=== PATIENT | female | born 1950 | race Caucasian/White ===

== ENCOUNTER 2016-04-02 10:03 | Outpatient (CLI) ==
[2015-12-21 12:19] VITALS: BMI 32.5
[2016-04-02 10:49] LABS: ALBUMIN 3.3 g/dL (3.4-5.0); ANION GAP 13.2; BILIRUBIN,TOTAL 0.3 mg/dL (0.00-1.20); BUN/CREATININE RATIO 25.33; CALCIUM 8.9 mg/dL (8.2-10.2); CREATININE 0.75 mg/dL (0.60-1.30); POTASSIUM 4.2 mmol/L (3.5-5.10); TOTAL PROTEIN 6.6 g/dL (5.8-8.1)
== END 2016-04-02 10:04 | disposition home or self-care (01) ==
LOC: LAB 10:03
PROVIDERS: ATTEND Emergency Medicine
DX: E11.9 Type 2 diabetes mellitus without complications (principal)
CPT/HCPCS: 36415; 80053; 83036

== ENCOUNTER 2016-04-04 09:35 | Outpatient (CLI) ==
[2015-12-21 12:19] VITALS: BMI 32.5
--- NOTE | 2016-04-04 11:08 | CT ---
EXAM: CT Abdomen without contrast. CT Pelvis without contrast. HISTORY: Right upper quadrant pain. Diarrhea. COMPARISON: None available. TECHNIQUE: Multiple axial images of the abdomen and pelvis were obtained without intravenous contra st. Images were reformatted in the coronal plane. FINDINGS: Please note that evaluation of the abdominal and pelvic structures is limited due to lack of intravenous contrast. The lung bases are clear. Degenerative changes present in the spine. Gallbladder is absent. The liver contains a 1.1 cm fluid density lesion in the left lobe on axial i mage 14. The pancreas, spleen, and right adrenal gland demonstrate normal contour. A 1.2 cm fluid density left adrenal nodule noted on axial image 23. There is a fluid density left renal cortical l esion measuring 6.9 x 6.5 cm in the lower pole on axial image 36 which extends 6.9 cm in cranial cau fidencio length on coronal image 57. Exophytic lobular fluid density lesion off the right upper pole cor zachary measures approximately 3.2 x 2.9 x 3.4 cm on axial image 27 and coronal image 55. No calcified renal stones or hydronephrosis detected. The bowel is normal in course and caliber without evidence for obstruction or inflammatory process. The appendix is not identified. Urinary bladder is unremarkable. Uterus is absent. Atherosclerot ic calcifications noted. There is a small fat-containing umbilical hernia. No free fluid or free a ir noted. IMPRESSION: 1. Hepatic and bilateral renal cystic lesions. Consider correlation with ultrasound to assess for any internal complexity. 2. Benign left adrenal adenoma.
== END 2016-04-04 09:36 | disposition home or self-care (01) ==
LOC: RAD 09:35
PROVIDERS: ATTEND Emergency Medicine
DX: R10.11 Right upper quadrant pain (principal)

== ENCOUNTER 2016-04-10 08:11 | Outpatient (CLI) ==
[2015-12-21 12:19] VITALS: BMI 32.5
[2016-04-10 09:21] LABS: AMYLASE 37 U/L (25-115); LIPASE 38 U/L (8-78)
--- NOTE | 2016-04-10 09:43 | US ---
EXAM: ULTRASOUND ABDOMEN LIMITED HISTORY: Hepatic and renal cystic lesions. FINDINGS: Ultrasound abdomen, limited. Liver size was measured at 18 cm, upper limit normal. The liver demonstrated a tiny 1 cm anechoic mass of the right hepatic lobe. No intrahepatic biliary dil atation. The portal vein is patent and hepatopedal. Gallbladder has been removed. Common bile duct diameter normal at 0.38 cm. Visualized pancreas wit hin normal limits. The right kidney had a 2.5 cm anechoic lesion of the superior aspect. Left kidn ey was not imaged. IMPRESSION: 1. Tiny simple 1 cm right hepatic lobe cyst. 2. The superior right kidney has a simple 2.5 cm cortical cyst. ]
== END 2016-04-10 08:12 | disposition home or self-care (01) ==
LOC: RAD 08:11
PROVIDERS: ATTEND Nurse Practitioner Family
DX: K76.89 Other specified diseases of liver (principal); N28.1 Cyst of kidney, acquired; E11.65 Type 2 diabetes mellitus with hyperglycemia; I10 Essential (primary) hypertension
CPT/HCPCS: 36415; 80074; 82150; 83690

== ENCOUNTER 2016-04-17 08:27 | Outpatient (CLI) ==
[2015-12-21 12:19] VITALS: BMI 32.5
--- NOTE | 2016-04-17 09:16 | US ---
Examination: Abdalla-scale and color Doppler real-time imaging of the kidneys and urinary bladder. Reason for study: Cyst of kidney. Comparison: CT examination of the abdomen pelvis performed 04/04/2016. FINDINGS: The right kidney measures approximately 10.95 x 5.22 x 5.71 cm with normal appearing echotexture, no hydronephrosis, and no nephrolithiasis. In the superior pole of the right kidney there is a 2.89 x 2.42 x 2.25 cm renal cyst without interva l vascularity. The left kidney measures approximately 10.54 x 5.95 x 5.54 cm with normal appearing echotexture, no hydronephrosis, and no nephrolithiasis. In the inferior pole of the left kidney. There is a septated renal cyst measuring approximately 8.9 2 x 5.92 x 5.81 cm without interval vascularity. The bladder is not completely evaluated as is almost completely empty of urine. Impression: Bilateral renal cysts the largest is seen in the left kidney with small internal septations and no i nterval vascularity.
== END 2016-04-17 08:28 | disposition home or self-care (01) ==
LOC: RAD 08:27
PROVIDERS: ATTEND Nurse Practitioner Family
DX: N28.1 Cyst of kidney, acquired (principal)
CPT/HCPCS: 76770

== ENCOUNTER 2016-06-11 07:48 | Day surgery (SDC) ==
[2015-12-21 12:19] VITALS: BMI 32.5
[2016-06-11] MEDS ORDERED: LIDOCAINE 1% 20 ML MDV ONE (08:21)
[2016-06-11] MEDS ORDERED: LIDOCAINE 1% 20 ML MDV ID ONE (08:21)
[2016-06-11] MEDS ORDERED: SUBLIMAZE ONE (09:38)
[2016-06-11] MEDS ORDERED: VERSED ONE (09:38)
[2016-06-11] MEDS ORDERED: DIPRIVAN 20 ML VIAL IVP ONE (09:38)
[2016-06-11 11:50] VITALS: BP 108/70; TEMP 97.5
--- NOTE | 2016-06-11 13:58 | OP ---
PROCEDURE: COLONOSCOPY TO CECUM WITH SNARE POLYPECTOMY. ENDOSCOPIST: Apolinar BYRNES M.D. INDICATION: Diarrhea INSTRUMENT: PCFH-190. MEDICATION: PER ANESTHESIA. PROCEDURE: The patient was positioned for colonoscopy. The digital rectal exam was negative. The colonoscope was inserted through the anus and advanced to the cecum. The cecum was identified using the ileocecal valve and the appendiceal orifice as landmarks. The scope was slowly withdrawn through an adequately prepped colon. The patient had diarrhea but had return Giardia positive and has been treated. Her diarrhea had resolved. We found a small polyp in the ascending colon, 60 centimeters, 50 cm and 30cm, these were all in the 5mm size range. These were removed using snare cautery and submitted in separate containers. The retroflex exam was otherwise negative. Withdraw time 10 minutes and 24 seconds. PLAN: 1. Repeat colonoscopy in three years. 2. She can resume her Plavix in five days 3. See her as needed CC: [facility], Dr. Belkis COREA
== END 2016-06-11 11:00 | disposition home or self-care (01) ==
LOC: SURG 07:48
PROVIDERS: ATTEND Internal Medicine Gastroenterology
DX: R19.7 Diarrhea, unspecified (principal); D12.2 Benign neoplasm of ascending colon; D12.4 Benign neoplasm of descending colon; D12.5 Benign neoplasm of sigmoid colon; E11.9 Type 2 diabetes mellitus without complications
CPT/HCPCS: 82962

== ENCOUNTER 2016-06-26 08:40 | Outpatient (CLI) ==
[2015-12-21 12:19] VITALS: BMI 32.5
[2016-06-26 08:49] LABS: BASOPHILS # (AUTO) 0.1 K/uL (0-0.2); BASOPHILS % (AUTO) 0.6 % (0.0-3.0); EOSINOPHILS # (AUTO) 0.2 K/ul (0.0-0.7); HEMATOCRIT 38.4 % (37.0-47.0); HEMOGLOBIN 12.8 g/dl (12.0-16.0); IMMATURE GRANULOCYTE % (AUTO) 0.5 % (0.0-5.0); LYMPHOCYTES # (AUTO) 1.6 K/uL (0.60-3.4); LYMPHOCYTES % (AUTO) 15.1 (10.0-50.0); MEAN CORPUSCULAR HEMOGLOBIN 27.8 pg (27.0-31.0); MEAN CORPUSCULAR HGB CONC 33.3 (31.8-35.4); MEAN CORPUSCULAR VOLUME 83.3 fl (81.0-99.0); MONOCYTES # (AUTO) 0.6 K/uL (0.4-2.0); MONOCYTES % (AUTO) 5.2 (0-10); NEUTROPHILS # (AUTO) 8.2 K/ul (2.0-6.9); NEUTROPHILS % (AUTO) 76.6; PLATELET COUNT 483 10^3/uL (140-440); RED BLOOD COUNT 4.61 10^6/ul (4.20-5.40); WHITE BLOOD COUNT 10.66 K/ul (4.6-10.2)
[2016-06-26 09:26] LABS: ALBUMIN 3.2 g/dL (3.4-5.0); ALBUMIN/GLOBULIN RATIO 0.76; ANION GAP 13.1; BILIRUBIN,TOTAL 0.32 mg/dL (0.00-1.20); CALCIUM 9.2 mg/dL (8.2-10.2); CREATININE 0.83 mg/dL (0.60-1.30); POTASSIUM 4.1 mmol/L (3.5-5.10); TOTAL PROTEIN 7.4 g/dL (5.8-8.1)
[2016-06-26 09:27] LABS: BUN/CREATININE RATIO 30.12; CHOL/HDL RATIO 3.5 (4.5-5.5)
== END 2016-06-26 08:41 | disposition home or self-care (01) ==
LOC: LAB 08:40
PROVIDERS: ATTEND Emergency Medicine
DX: E11.65 Type 2 diabetes mellitus with hyperglycemia (principal); I10 Essential (primary) hypertension; E78.5 Hyperlipidemia, unspecified; I25.10 Atherosclerotic heart disease of native coronary artery without angina pectoris
CPT/HCPCS: 36415; 80053; 80061; 83036; 84443; 85025

== ENCOUNTER 2016-07-04 09:36 | Outpatient (CLI) ==
[2015-12-21 12:19] VITALS: BMI 32.5
--- NOTE | 2016-07-04 10:28 | MAMMO ---
EXAM: Digital screening mammogram HISTORY: Screening mammogram COMPARISON: Mammogram 06/14/2015 and 11/27/2013 FINDINGS: Bilateral CC and MLO views of the breasts were performed digitally and demonstrate scatte red fibroglandular breast density (25 - 50%). Vascular calcifications are present and unchanged. Th ere is no abnormal nodule or calcification. There is no significant interval change. IMPRESSION: No new or suspicious calcification or nodule RECOMMENDATION: Annual screening mammogram BIRADS category II: Benign findings
== END 2016-07-04 09:37 | disposition home or self-care (01) ==
LOC: RAD 09:36
PROVIDERS: ATTEND Emergency Medicine
DX: Z12.31 Encounter for screening mammogram for malignant neoplasm of breast (principal)

== ENCOUNTER 2016-07-31 14:04 | Outpatient (CLI) ==
[2016-07-31 14:30] VITALS: BMI 33.3
== END 2016-07-31 14:11 ==
LOC: AMBL 14:04
PROVIDERS: ATTEND Internal Medicine
DX: R11.2 Nausea with vomiting, unspecified (principal); R25.2 Cramp and spasm; M79.605 Pain in left leg; M79.604 Pain in right leg; R73.9 Hyperglycemia, unspecified

== ENCOUNTER 2016-07-31 14:14 | Emergency (ER) | payer OTHER ==
[2016-07-31 14:30] VITALS: BP 150/80; TEMP 97.1; BMI 33.3
[2016-07-31] MEDS ORDERED: ZOFRAN 4 MG/2 ML IVP STA (14:30)
[2016-07-31] MEDS ORDERED: MORPHINE 4 MG/ML SYRINGE IVP STA (14:30)
[2016-07-31 14:51] LABS: BASOPHILS # (AUTO) 0.1 K/uL (0-0.2); BASOPHILS % (AUTO) 0.4 % (0.0-3.0); EOSINOPHILS % (AUTO) 0.2 % (0.0-7.0); HEMATOCRIT 38.4 % (37.0-47.0); HEMOGLOBIN 13.4 g/dl (12.0-16.0); IMMATURE GRANULOCYTE % (AUTO) 0.4 % (0.0-5.0); LYMPHOCYTES # (AUTO) 1.4 K/uL (0.60-3.4); LYMPHOCYTES % (AUTO) 10.4 (10.0-50.0); MEAN CORPUSCULAR HEMOGLOBIN 28.1 pg (27.0-31.0); MEAN CORPUSCULAR HGB CONC 34.9 (31.8-35.4); MEAN CORPUSCULAR VOLUME 80.5 fl (81.0-99.0); MONOCYTES # (AUTO) 0.5 K/uL (0.4-2.0); MONOCYTES % (AUTO) 3.4 (0-10); NEUTROPHILS # (AUTO) 11.7 K/ul (2.0-6.9); NEUTROPHILS % (AUTO) 85.2; PLATELET COUNT 406 10^3/uL (140-440); RED BLOOD COUNT 4.77 10^6/ul (4.20-5.40); WHITE BLOOD COUNT 13.69 K/ul (4.6-10.2)
[2016-07-31 15:23] LABS: ALANINE AMINOTRANSFERASE 16 U/L (12-78); ALBUMIN 3.9 g/dL (3.4-5.0); ALBUMIN/GLOBULIN RATIO 1.03; ALKALINE PHOSPHATASE 98 U/L (53-141); ANION GAP 15.8; ASPARTATE AMINO TRANSFERASE 15 U/L (15-37); BILIRUBIN,TOTAL 0.76 mg/dL (0.00-1.20); BLOOD UREA NITROGEN 24 mg/dL (7-18); BUN/CREATININE RATIO 18.04; CARBON DIOXIDE 23 mmol/L (23-31); CHLORIDE 101 mmol/L (98-107); CREATINE KINASE 61 U/L; CREATININE 1.33 mg/dL (0.60-1.30); GLUCOSE 107 mg/dL (82-115); POTASSIUM 3.8 mmol/L (3.5-5.10); SODIUM 136 mmol/L (136-145); TOTAL PROTEIN 7.7 g/dL (5.8-8.1)
--- NOTE | 2016-07-31 15:31 | US ---
EXAM: ULTRASOUND LOWER EXTREMITY VENOUS DOPPLER EXAM HISTORY: Bilateral leg pain. FINDINGS: Bilateral lower extremity venous Doppler exam. Real time hansen-scale, Doppler spectral magda lysis and color-flow Doppler imaging performed. The veins targeted for evaluation include the commo n femoral, greater saphenous, profundus, femoral, popliteal, peroneal, anterior tibial and posterior tibial. The evaluated veins demonstrated normal spontaneous flow and compression without evidence of thrombosis. IMPRESSION: No venous thrombosis identified within the areas evaluated.
--- NOTE | 2016-07-31 15:57 | CT ---
EXAM: CT of the chest without contrast History: Cough. Comparison: CT abdomen pelvis 07/31/2016, chest radiograph 07/27/2013 Technique: Multiplanar CT images through the thorax were obtained without the administration of IV contrast Findings: Heart size is normal. Small pericardial effusion. Coronary calcifications and mitral va lve calcifications. Great vessels are grossly unremarkable on this noncontrast study. No pathologi marilou enlarged thoracic lymph nodes. No consolidation. No pleural fluid and no pneumothorax. No suspicious lung masses or lung nodules. For details in the upper abdomen, please see dedicated CT abdomen pelvis done on the same day. Stat us post cholecystectomy and bilateral renal cysts. Small left adrenal nodule. No acute osseous abn ormalities. Degenerative disc disease within the thoracic spine. Impression: 1. No acute intrathoracic process. 2. Coronary artery disease and mitral valve calcifications. 3. Small pericardial effusion. 4. For details in the upper abdomen, please see dedicated CT abdomen pelvis done on the same day.
--- NOTE | 2016-07-31 16:04 | CT ---
EXAM: CT ABDOMEN AND PELVIS HISTORY: Abdominal pain. Leg cramps going up into hips. TECHNIQUE: CT abdomen and pelvis without intravenous contrast. Images were reconstructed using 5 m m section thickness. Reformations were prepared. COMPARISON: 04/04/2016, no other prior FINDINGS: Diagnostic limitations exist without including contrast enhanced images. Stable tiny 0.88 cm low at tenuation lesion of the posterior left hepatic lobe with near water attenuation suggesting a cyst. Spleen unremarkable. Gallbladder absent. Pancreas and right adrenal gland appear normal. Stable t iny 0.9 cm fatty left adrenal adenoma. Stable bilateral renal cortical cystic masses suggesting cys ts. These can be correlated with ultrasound to assure simple architecture if not previously perform ed. No hydronephrosis or evidence of ureteral obstruction. Normal abdominal aorta. Stomach is within normal limits. Patient gave a history of previous appendectomy. There is increased submucosal fat deposition within the right colon possibly from previous bouts of inflammation. Les s likely early active colitis. Nonobstructive bowel gas pattern. The patient is post hysterectomy. There is a small 2 cm cystic mass in the posterior lower anatomic pelvis which is unchanged and po ssibly representing an ovary or a postop seroma. Correlate with surgical history. Pelvic ultrasoun d can be considered if indicated. Urinary bladder is within normal limits. There is no ascites or inflammatory infiltration of the abdominal fat. No abdominal wall defect. The bones reveal degenerative disc and facet disease of the lumbosacral j unction. Lung bases are clear and there is no pneumoperitoneum. IMPRESSION: 1. Increased submucosal fat deposition within the right colon likely from previous bouts of inflamm ation, less likely early acute colitis. 2. Renal cortical cystic masses appear stable since recent exam. These may represent cysts. 3. Tiny left hepatic lobe cyst. 4. The 2 cm posterior lower pelvic cystic mass possibly one of the ovaries versus tiny seroma. Pel linda ultrasound can be considered if indicated. This is unchanged since prior study.
--- NOTE | 2016-07-31 17:23 | ED.PDOC ---
General ED Provider: Dr. BROOKE BNYUM Chief Complaint: Nausea/Vomiting Stated Complaint: leg pain cramps belowe knees right and left sided Time Seen by Physician: 14:30 Information Source: Patient Exam Limitations: No limitations [facility] Nursing and Triage Documentation Reviewed and Agree: Yes Musculoskeletal Complaint Exam - Hip/Pelvis Complaint/Exam Location of Pain: Reports: Right, Left Onset/Duration: 2 hr ago Symptoms Are: Still present Initial Severity: Moderate Current Severity: Moderate Character: Reports: Aching, Throbbing Aggravating: Reports: None Alleviating: Reports: None Associated Signs and Symptoms: Denies: Swelling, Redness, Bruising, Fever, Weakness, Dizziness, Syncope, Abdominal pain, Knee pain Related History: Reports: Similar episode Able to Bear Weight: Yes Septic Arthritis Risk Factors: Reports: Extremes of age Related Surgical History: Reports: None Pelvis Palpation: Stable Differential Diagnoses: Other (dvt) Review of Systems - Review Of Systems Constitutional: Reports: No symptoms Eyes: Reports: No symptoms Ears, Nose, Mouth, Throat: Reports: No symptoms Respiratory: Reports: No symptoms Cardiac: Reports: No symptoms GI: Reports: No symptoms : Reports: No symptoms Musculoskeletal: Reports: Other (leg pain) Skin: Reports: No symptoms Neurological: Reports: No symptoms Endocrine: Reports: No symptoms Hematologic/Lymphatic: Reports: No symptoms All Other Systems: Reviewed and Negative Past Medical History - Past Medical History Previously Healthy: No Endocrine: Reports: DM 1, Dyslipidemia Cardiovascular: Reports: CAD, Hypertension Respiratory: Reports: None Hematological: Reports: Anemia Gastrointestinal: Reports: GERD Genitourinary: Reports: None Neuro/Psych: Reports: Depression Musculoskeletal: Reports: Arthritis, Back Pain, Joint Pain Cancer: Reports: None Last Menstrual Period: NA Other Pertinent Past Medical History: APPYGB htn dm chol gerd mike arth - Surgical History General Surgical History: Reports: Hysterectomy, Appendectomy, Cholecystectomy, Orthopedic (TUMOR LEFT HIP REMOVED) - Family History Family History: Reports: None - Social History Smoking Status: Never smoker Hx Substance Use: No Alcohol Screening: None Physical Exam - Physical Exam Appearance: Well-appearing, No pain distress, Well-nourished Eyes: LISA, EOMI, Conjunctiva clear ENT: Ears normal, Nose normal, Oropharynx normal Respiratory: Airway patent, Breath sounds clear, Breath sounds equal, Respirations nonlabored Cardiovascular: RRR, Pulses normal, No rub, No murmur GI/: Soft, Nontender, No masses, Bowel sounds normal, No Organomegaly Musculoskeletal: Normal strength, ROM intact, No edema, No calf tenderness Skin: Warm, Dry, Normal color Neurological: Sensation intact, Motor intact, Reflexes intact, Cranial nerves intact, Alert, Oriented Psychiatric: Affect appropriate, Mood appropriate Interpretation - Radiology Interpretation Radiology Interpretation By: Radiologist Radiology Results: No acute changes Critical Care Note - Critical Care Note Total Time (mins): 0 Course - Course Hematology/Chemistry: 07/31/16 14:45 07/31/16 14:45 Orders, Labs, Meds: Lab Review 07/31/16 14:45 WBC 13.69 H RBC 4.77 Hgb 13.4 Hct 38.4 MCV 80.5 L MCH 28.1 MCHC 34.9 RDW Coeff of Chinedu 13.3 Plt Count 406 Immature Gran % (Auto) 0.4 Neut % (Auto) 85.2 Lymph % (Auto) 10.4 [place] % (Auto) 3.4 Eos % (Auto) 0.2 Baso % (Auto) 0.4 Immature Gran # (Auto) 0.1 Neut # 11.7 H Lymph # 1.4 [place] # 0.5 Eos # 0.0 Baso # 0.1 Sodium 136 Potassium 3.8 Chloride 101 Carbon Dioxide 23 Anion Gap 15.8 BUN 24 H Creatinine 1.33 H Estimated GFR (MDRD) 40.00 BUN/Creatinine Ratio 18.04 Glucose 107 Lactic Acid 28.1 H Calcium 10.0 Total Bilirubin 0.76 AST 15 ALT 16 Alkaline Phosphatase 98 Total Creatine Kinase 61 Troponin I < 0.0100 Total Protein 7.7 Albumin 3.9 Globulin 3.8 Albumin/Globulin Ratio 1.03 Procalcitonin < 0.05 Orders Category Date Time Status EKG-(ED ONLY) Stat CARDIO 07/31/16 14:31 Completed ED IV/MEDIPORT/POWERPORT .ONCE EMERGENCY 07/31/16 14:31 Active BLOOD CULTURE Stat LAB 07/31/16 14:45 Received CBC W/ AUTO DIFF Stat LAB 07/31/16 14:45 Completed COMPREHENSIVE METABOLIC PANEL Stat LAB 07/31/16 14:45 Completed CREATINE KINASE Stat LAB 07/31/16 14:45 Completed LACTIC ACID Stat LAB 07/31/16 14:45 Completed PROCALCITONIN Stat LAB 07/31/16 14:45 Completed TROPONIN I Stat LAB 07/31/16 14:45 Completed 0.9 % Sodium Chloride [Saline Flush] MEDS 07/31/16 14:30 Active 1 syr IVF PRN PRN Morphine Sulfate [Morphine 4 mg/ml Syringe] MEDS 07/31/16 14:30 Discontinued 4 mg IVP ONCE STA Ondansetron HCl/Pf [Zofran 4 mg/2 ml] MEDS 07/31/16 14:30 Discontinued [address] ABDOMEN/PELVIS WO CONTRAST Stat RADS 07/31/16 14:[address] CHEST W/O CONTRAST Stat RADS 07/31/16 14:31 Completed U/S VENOUS SCAN HUNG LEGS Stat RADS 07/31/16 14:32 Completed Medications Generic Name Dose Route Start Last Admin Trade Name Freq PRN Reason Stop Dose Admin Sodium Chloride 1 syr 07/31/16 14:30 Saline Flush IVF PRN PRN To flush IV Discontinued Medications Generic Name Dose Route Start Last Admin Trade Name Freq PRN Reason Stop Dose Admin Morphine Sulfate 4 mg 07/31/16 14:30 07/31/16 14:37 Morphine 4 Mg/Ml Syringe IVP 07/31/16 14:31 4 mg ONCE STA Administration Ondansetron HCl 4 mg 07/31/16 14:30 07/31/16 14:36 Zofran 4 Mg/2 Ml IVP 07/31/16 14:31 4 mg ONCE STA Administration Vital Signs: Temp Pulse Resp BP Pulse Ox 07/31/16 14:25 97.1 F L 68 20 150/80 H 97 Departure - Departure Time of Disposition: 17:22 Disposition: HOME SELF-CARE Discharge Problem: Nausea, Vomiting Leg pain Qualifiers: Laterality: bilateral Qualifier Code: (M79.604) Pain in right leg Instructions: Arthralgia (ED) Condition: Good Pt referred to PMD for follow-up: No Additional Instructions: Please call your Family Physician as soon as possible to schedule a follow-up appointment. Prescriptions: Hydrocodone/Acetaminophen [[place] 10-325 Tablet] 1 each PO Q8HR #12 tablet Allergies/Adverse Reactions: Allergies atorvastatin calcium [From Lipitor] Allergy (Severe, Verified 07/31/16 14:20) muscle cramps rosuvastatin calcium [From Crestor] Allergy (Severe, Verified 07/31/16 14:20) leg cramps strawberry [[place]] Allergy (Severe, Verified 07/31/16 14:20) Swelling Penicillins Adverse Reaction (Verified 07/31/16 14:20) IV DYE Adverse Reaction (Uncoded 07/31/16 14:20) Home Medications: Ambulatory Orders Amlodipine Besylate DAILY 06/11/16 Carvedilol [Coreg] 25 mg PO 1-2XD 06/11/16 Isosorbide Mononitrate [Imdur] DAILY 06/11/16 Hydrocodone/Acetaminophen [Preston 10-325 Tablet] 1 each PO Q8HR #12 tablet Insulin Lispro [Humalog] 30 unit SQ TIDWM 07/31/16
== END 2016-07-31 18:02 | disposition home or self-care (01) ==
LOC: ED 14:14
DX: R11.2 Nausea with vomiting, unspecified (principal); M79.604 Pain in right leg; R25.2 Cramp and spasm; E10.9 Type 1 diabetes mellitus without complications; E78.5 Hyperlipidemia, unspecified; I10 Essential (primary) hypertension; I25.10 Atherosclerotic heart disease of native coronary artery without angina pectoris; K21.9 Gastro-esophageal reflux disease without esophagitis; Z79.899 Other long term (current) drug therapy
CPT/HCPCS: 36415; 80053; 82550; 83605; 84145; 84484; 85025; 87040; 93005; 93010; 96374; 96375; 99283

== ENCOUNTER 2016-08-08 08:24 | Outpatient (CLI) | payer OTHER ==
--- NOTE | 2016-08-08 09:00 | US ---
EXAM: Transvaginal pelvic ultrasound HISTORY: Hysterectomy with pelvic cyst on CT COMPARISON: CT abdomen pelvis 07/31/2016 TECHNIQUE: Transvaginal pelvic ultrasound was performed to better evaluate the structures. Limited Doppler was provided. FINDINGS: The uterus has been removed. There is no free fluid. The ovaries are not identified. The pelvic cystic lesion is noted at midline with no internal color Doppler flow measuring 1.3 x 1.9 x 1.9 cm. There is no associated soft tissue identified. IMPRESSION: Midline anechoic pelvic cystic lesion as measured above with no associated soft tissue identified.
== END 2016-08-08 08:25 | disposition home or self-care (01) ==
LOC: RAD 08:24
PROVIDERS: ATTEND Emergency Medicine
DX: N83.209 Unspecified ovarian cyst, unspecified side (principal)

== ENCOUNTER 2016-09-17 10:04 | Outpatient (CLI) ==
[2016-09-17 10:56] LABS: ALBUMIN 3.4 g/dL (3.4-5.0); ALBUMIN/GLOBULIN RATIO 0.85; ANION GAP 16.7; BILIRUBIN,TOTAL 0.41 mg/dL (0.00-1.20); BUN/CREATININE RATIO 25.92; CALCIUM 9.9 mg/dL (8.2-10.2); CREATININE 0.81 mg/dL (0.60-1.30); POTASSIUM 3.7 mmol/L (3.5-5.10); TOTAL PROTEIN 7.4 g/dL (5.8-8.1)
[2016-09-17 12:41] VITALS: BMI 33.1
== END 2016-09-17 10:05 | disposition home or self-care (01) ==
LOC: CAR 10:04
PROVIDERS: ATTEND Emergency Medicine
DX: E11.65 Type 2 diabetes mellitus with hyperglycemia (principal); R07.9 Chest pain, unspecified
CPT/HCPCS: 36415; 80053; 93005; 93010

== ENCOUNTER 2016-09-17 12:02 | Inpatient (IN) ==
[2016-09-17 12:41] VITALS: BMI 33.1
[2016-09-17] MEDS ORDERED: NON-FORMULARY MEDICATION (Amlodipine Besylate [Amlodipine Besylate] 10 MG) PO SCH ×22 (12:45)
[2016-09-17] MEDS ORDERED: LOSARTAN PO SCH (12:45)
[2016-09-17] MEDS ORDERED: NON-FORMULARY MEDICATION (Carvedilol [Coreg] 25 MG) PO SCH ×22 (12:45)
[2016-09-17] MEDS ORDERED: HYDROCHLOROTHIAZIDE PO SCH (12:45)
[2016-09-17] MEDS ORDERED: [UNRECOGNIZED DRUG - OTHER] PO SCH (12:45)
[2016-09-17] MEDS ORDERED: IMDUR PO SCH (13:00)
[2016-09-17] MEDS: COZAAR PO SCH (14:33)
[2016-09-17] MEDS: HYDROCHLOROTHIAZIDE PO SCH (14:33)
[2016-09-17] MEDS: CELEXA PO SCH (14:33)
[2016-09-17] MEDS: PLAVIX PO SCH (14:34)
[2016-09-17] MEDS: NORVASC PO SCH (14:34)
[2016-09-17] MEDS: PROTONIX PO SCH (14:34)
[2016-09-17] MEDS: D5%-NS-KCL 20 MEQ/L IV SOL 1,000 ML IV SCH (15:23)
[2016-09-17] MEDS: HUMULIN R SUBCUT PRN ×2 (17:41→21:35)
[2016-09-17] MEDS: IMDUR PO SCH (20:31)
[2016-09-18] MEDS: D5%-NS-KCL 20 MEQ/L IV SOL 1,000 ML IV SCH (04:15)
[2016-09-18 05:02] LABS: BASOPHILS # (AUTO) 0.1 K/uL (0-0.2); BASOPHILS % (AUTO) 0.6 % (0.0-3.0); EOSINOPHILS # (AUTO) 0.2 K/ul (0.0-0.7); EOSINOPHILS % (AUTO) 2.4 % (0.0-7.0); HEMATOCRIT 32.8 % (37.0-47.0); HEMOGLOBIN 11.3 g/dl (12.0-16.0); IMMATURE GRANULOCYTE % (AUTO) 0.3 % (0.0-5.0); LYMPHOCYTES # (AUTO) 2.6 K/uL (0.60-3.4); LYMPHOCYTES % (AUTO) 26.6 (10.0-50.0); MEAN CORPUSCULAR HEMOGLOBIN 28.5 pg (27.0-31.0); MEAN CORPUSCULAR HGB CONC 34.5 (31.8-35.4); MEAN CORPUSCULAR VOLUME 82.8 fl (81.0-99.0); MONOCYTES # (AUTO) 0.8 K/uL (0.4-2.0); MONOCYTES % (AUTO) 8.3 (0-10); NEUTROPHILS # (AUTO) 6.1 K/ul (2.0-6.9); NEUTROPHILS % (AUTO) 61.8; PLATELET COUNT 323 10^3/uL (140-440); RED BLOOD COUNT 3.96 10^6/ul (4.20-5.40); WHITE BLOOD COUNT 9.93 K/ul (4.6-10.2)
[2016-09-18 05:23] LABS: ALBUMIN 2.9 g/dL (3.4-5.0); ALBUMIN/GLOBULIN RATIO 0.94; BILIRUBIN,TOTAL 0.33 mg/dL (0.00-1.20); CALCIUM 8.9 mg/dL (8.2-10.2); CREATININE 0.8 mg/dL (0.60-1.30)
[2016-09-18] MEDS: PROTONIX PO SCH (05:44)
[2016-09-18] MEDS: HUMULIN R SUBCUT PRN (05:45)
[2016-09-18] MEDS ORDERED: SODIUM CHLORIDE 1,000 ML IV SCH (09:00)
[2016-09-18] MEDS ORDERED: NON-FORMULARY MEDICATION (Carvedilol [Coreg] 25 MG) PO SCH ×22 (09:00)
[2016-09-18] MEDS: PLAVIX PO SCH (09:02)
[2016-09-18] MEDS: COZAAR PO SCH (09:02)
[2016-09-18] MEDS: COREG PO SCH (09:02)
[2016-09-18] MEDS: NORVASC PO SCH (09:02)
[2016-09-18] MEDS: HYDROCHLOROTHIAZIDE PO SCH (09:03)
[2016-09-18] MEDS: IMDUR PO SCH ×2 (09:03→20:17)
[2016-09-18] MEDS: CELEXA PO SCH (09:03)
[2016-09-18] MEDS: LOVENOX SUBCUT SCH (09:07)
[2016-09-18] MEDS: HUMALOG SUBCUT SCH ×2 (11:43→17:48)
--- NOTE | 2016-09-18 13:31 | PN ---
DATE OF SERVICE: 09/18/16 SUBJECTIVE: The patient's sugars were very low but ever since admission the sugars are improved but going up to 300-365. The patient says this is what happens all the time. REVIEW OF SYSTEMS: CONSTITUTIONAL: No fever, no chills. HEENT: Normal. ENDOCRINE: No weight gain, no weight loss. CVS: No angina symptoms. No CHF symptoms. No palpitations. No atypical chest pain for CAD. No shortness of breath. No PND, no orthopnea. RESPIRATORY: No cough, no hemoptysis. GI: No nausea, no vomiting. No abdominal pain. : No hematuria. No polyuria. MUSCULOSKELETAL:. No joint swelling. PSYCHIATRIC: Not anxious. No depression. No suicidal thoughts. No homicidal thoughts. SKIN: Intact. No rash. PHYSICAL EXAMINATION: V/S: BP 130/80, respiratory rate 13, heart rate 79, temperature 97.7. HEENT: Normocephalic, atraumatic. Mucosa dry. Pallor positive. No icterus. NECK: Supple. No JVD, no carotid bruit. No lymphadenopathy. LUNGS: Decreased entry. Clear to auscultation. No rales or rhonchi. HEART: S1, S2 normal. No S3. No murmur, gallop or regurgitation. ABDOMEN: Soft, nontender. Bowel sounds active. No rigidity. No rebound or guarding. No CVA tenderness. EXTREMITIES: No clubbing, cyanosis or pedal edema. MUSCULOSKELETAL: No joint swelling. NEUROLOGIC: Awake, alert, oriented times three. No focal deficit. LYMPHATIC: No lymph nodes palpable. SKIN: Intact. LABS: White count 9.98, hemoglobin 11.3, hemoglobin 32.8, platelet count 323. Sodium 139, potassium 4.0, chloride 111, bicarb 33, BUN 16, creatinine 180. Glucose 206. ASSESSMENT: 1. SEVERE HYPOGLYCEMIA 24-25 2. DIABETES MELLITUS, LABILE 3. HYPERTENSION 4. CAD STATUS POST STENT 5. DYSLIPIDEMIA 6. OSTEOARTHRITIS 7. DJD SPINE PLAN: 1. Increase the Lantus to 90 units. 2. Decrease Lispro to 15 units with each meal. 3. Continue to follow Accu-Cheks. 4. Stop D5 NS. 5. Daily I & O's. TIME SPENT: More than 30 minutes MTDD
[2016-09-18 15:57] LABS: BILIRUBIN,URINE Negative (NEGATIVE); KETONES,URINE Negative (NEGATIVE); LEUKOCYTE ESTERASE ,URINE Trace (NEGATIVE); NITRITE,URINE Negative (NEGATIVE); PH,URINE 5.5 (5-9); PROTEIN,URINE Negative (NEGATIVE); URINE, BLOOD Negative (NEGATIVE)
[2016-09-18 16:05] LABS: ADD URINE MICROSCOPIC YES
[2016-09-18 16:06] LABS: BACTERIA,URINE 4+ (NOT PRESENT)
[2016-09-18] MEDS ORDERED: LANTUS SUBCUT SCH (21:00)
[2016-09-19 01:59] VITALS: TEMP 97.9
[2016-09-19 04:50] LABS: BASOPHILS % (AUTO) 0.4 % (0.0-3.0); EOSINOPHILS # (AUTO) 0.2 K/ul (0.0-0.7); EOSINOPHILS % (AUTO) 2.1 % (0.0-7.0); HEMATOCRIT 32.5 % (37.0-47.0); HEMOGLOBIN 11.3 g/dl (12.0-16.0); IMMATURE GRANULOCYTE % (AUTO) 0.2 % (0.0-5.0); LYMPHOCYTES # (AUTO) 2.6 K/uL (0.60-3.4); MEAN CORPUSCULAR HEMOGLOBIN 28.6 pg (27.0-31.0); MEAN CORPUSCULAR HGB CONC 34.8 (31.8-35.4); MEAN CORPUSCULAR VOLUME 82.3 fl (81.0-99.0); MONOCYTES # (AUTO) 0.7 K/uL (0.4-2.0); MONOCYTES % (AUTO) 7.8 (0-10); NEUTROPHILS # (AUTO) 5.4 K/ul (2.0-6.9); NEUTROPHILS % (AUTO) 60.5; PLATELET COUNT 328 10^3/uL (140-440); RED BLOOD COUNT 3.95 10^6/ul (4.20-5.40); WHITE BLOOD COUNT 8.98 K/ul (4.6-10.2)
[2016-09-19 05:09] LABS: ALBUMIN 2.8 g/dL (3.4-5.0); ALBUMIN/GLOBULIN RATIO 0.88; ANION GAP 11.9; BILIRUBIN,TOTAL 0.33 mg/dL (0.00-1.20); BUN/CREATININE RATIO 27.53; CALCIUM 8.8 mg/dL (8.2-10.2); CREATININE 0.69 mg/dL (0.60-1.30); POTASSIUM 3.9 mmol/L (3.5-5.10)
[2016-09-19 05:30] VITALS: BP 136/63
[2016-09-19] MEDS: PROTONIX PO SCH (05:41)
[2016-09-19] MEDS: CELEXA PO SCH (09:02)
[2016-09-19] MEDS: LOVENOX SUBCUT SCH (09:02)
[2016-09-19] MEDS: PLAVIX PO SCH (09:03)
[2016-09-19] MEDS: NORVASC PO SCH (09:03)
[2016-09-19] MEDS: HYDROCHLOROTHIAZIDE PO SCH (09:03)
[2016-09-19] MEDS: COZAAR PO SCH (09:03)
[2016-09-19] MEDS: COREG PO SCH (09:04)
[2016-09-19] MEDS: IMDUR PO SCH (09:04)
[2016-09-19] MEDS: HUMALOG SUBCUT SCH (09:06)
--- NOTE | 2016-09-19 11:02 | PCM.PROG ---
Attending Provider: ATTENDING PROVIDER: [facility] DATE OF SERVICE: 09/19/16 SUBJECTIVE: This 66 year old WHITE/ F was hospitalized 09/17/16. The patient is sitting in bed, blood sugars are mostly under 200 to 90. Lantus was made 90 units h.s. and Humalog 15 units t.i.d. with meals, which is helping her to feel better. REVIEW OF SYSTEMS: CONSTITUTIONAL: No fever, no chills. ENDOCRINE: No weight loss or weight gain. Having episodes with blood sugar. HEENT: No sinus drainage, no sore throat. CVS: No angina symptoms. No CHF symptoms. No palpitations. No atypical chest pain for CAD. No shortness of breath. RESPIRATORY: No cough, no hemoptysis. GI: No melena. No abdominal pain. No nausea, no vomiting. : No hematuria. No polyuria. SKIN: No rash. No wounds. MUSCULOSKELETAL: No pain. UNDERGRADUATE ADVISOR: No blackout, no dizziness. No headache. No double vision. PSYCHIATRIC: Not anxious; no depression. No suicidal thoughts. No homicidal thoughts. PHYSICAL EXAMINATION: GENERAL: Lying in bed in no distress. VITAL SIGNS: Temperature 97.9 F, Pulse 71, Respiratory Rate 20, BP 136/63, Pulse Ox 94% HEENT: Normocephalic, atraumatic. Mucosa is dry, pallor positive. NECK: No JVP, no carotid bruit. No lymphadenopathy. CARDIAC: S1, S2, no S3. No murmur, gallop or regurgitation. LUNGS: Clear to auscultation. ABDOMEN: Soft, non-tender. Bowel sounds active. No rigidity, guarding or CVA tenderness. EXTREMITIES: No clubbing, cyanosis or edema. NEUROLOGIC: Awake, alert and oriented x3. LYMPHATIC: No palpable lymph nodes SKIN: Not dry. Intact. MUSCULOSKELETAL: No joint swelling. LAB REVIEW: 09/19/16 04:46 09/19/16 04:46 09/19/16 04:46: WBC 8.98, RBC 3.95 L, Hgb 11.3 L, Hct 32.5 L, MCV 82.3, MCH 28.6 , MCHC 34.8, RDW Coeff of Chinedu 13.2, Plt Count 328, Immature Gran % (Auto) 0.2, Neut % (Auto) 60.5, Lymph % (Auto) 29.0, [place] % (Auto) 7.8, Eos % (Auto) 2.1, Baso % (Auto) 0.4, Immature Gran # (Auto) 0.0, Neut # 5.4, Lymph # 2.6, [place] # 0.7, Eos # 0.2, Baso # 0.0, Sodium 138, Potassium 3.9, Chloride 102, Carbon Dioxide 28, Anion Gap 11.9, BUN 19 H, Creatinine 0.69, Estimated GFR (MDRD) 85.00, BUN/Creatinine Ratio 27.53, Glucose 90 D, Calcium 8.8, Total Bilirubin 0.33, AST 11 L, ALT 12, Alkaline Phosphatase 75, Total Protein 6.0, Albumin 2.8 L, Globulin 3.2, Albumin/Globulin Ratio 0.88 09/18/16 15:15: Urine Color Yellow, Urine Clarity Clear, Urine pH 5.5, Ur Specific Rosie 1.010, Urine Protein Negative, Urine Glucose (UA) 1+, Urine Ketones Negative, Urine Blood Negative, Urine Nitrite Negative, Urine Bilirubin Negative, Urine Urobilinogen 0.2, Ur Leukocyte Esterase Trace, Urine Microscopic WBC 0-2, Ur Squamous Epith Cells Not present, Urine Bacteria 4+ ASSESSMENT: 1. Status post severe hypoglycemia (25) 2. Diabetes, labile 3. Noncompliant with diet 4. Hypertension 5. CAD status post stent 6. CHF 7. Dyslipidemia 8. Osteoarthritis PLAN: 1. Discharge home 2. Lifestyle modifications; olive brine tester talked to the patient about diet 3. The patient to follow up in the [facility] in one week 4. Continue to check sugars 5. Hypoglycemia and its symptoms discussed with the patient, advised not to drive if sugars are low 6. Cipro 250 mg b.i.d. times 5 days Plan and coordination of the patient's care discussed in the presence of Market Editor and nurse. CONDITION: Stable SCRIBED BY: LANDRY ROTHMAN Wireline Supervisor scribed while in presence of service performed by Dr. CECILY [facility] on 09/19/16 ([id number])
--- NOTE | 2016-10-16 14:12 | HP ---
DATE OF SERVICE: 09/17/16 CHIEF COMPLAINT: Followup visit at the office. HISTORY OF PRESENT ILLNESS: This is a 66-year-old female who came for routine followup at the office, was feeling fine, did not have any problems. As per the patient, she is doing well. No chest pain, PND or orthopnea. She had complaint that she drops sugars on and off. The lowest sugar at home was 45 and she was feeling weak and tired. On the day of examination when patient was examined, I ordered blood work. The blood work showed a sugar of 25. When the lower sugar was seen, the patient was admitted directly to the hospital. REVIEW OF SYSTEMS: CONSTITUTIONAL: Generalized weakness and tiredness. No fever, no chills. HEENT: Normal. ENDOCRINE: No weight gain; no weight loss. CVS: No chest pain. No PND, no orthopnea. No shortness of breath. No PND, no orthopnea. RESPIRATORY: No cough, no congestion. No hemoptysis. GI: No nausea, no vomiting. No abdominal pain. No melena. : No hematuria. No polyuria. MUSCULOSKELETAL: No joint swelling. PSYCHIATRIC: Not anxious. No depression. No suicidal thoughts. No homicidal thoughts. SKIN: Intact, no open lesions. PAST MEDICAL HISTORY: 1. CAD status post stents. 2. Hypertension. 3. Dyslipidemia. 4. GERD. 5. Osteoarthritis. 6. DJD spine. 7. Depression/anxiety. PAST SURGICAL HISTORY: 1. Left leg surgery, fatty tumor of the left hip removed. 2. Hysterectomy, bladder sling. FAMILY HISTORY: Significant for LA and lung cancer. PERSONAL HISTORY: Does not smoke or drink alcohol. MEDICATIONS: (HOME) 1. Plavix 2. Coreg 3. Imdur 4. Norvasc 5. Pantoprazole 6. Citalopram 7. Losartan 8. Insulin ALLERGIES: ATORVASTATIN, ROSUVASTATIN, PENICILLIN, STRAWBERRY, IV DYE PHYSICAL EXAMINATION: V/S: BP 104/65, respiratory rate 20, heart rate 67, temperature 96.9. HEENT: Atraumatic, normocephalic. No scleral icterus. Pallor positive. Mucosa dry. NECK: Supple. No JVD, no bruit. No lymphadenopathy. No thyromegaly. HEART: S1, S2 normal. No murmur. No cyanosis or clubbing. No ascites. LUNGS: Decreased breath sounds. Clear to auscultation. No rales or rhonchi. ABDOMEN: Soft, nontender. Bowel sounds are active. No CVA tenderness. No rigidity or guarding. EXTREMITIES: No cyanosis, clubbing or pedal edema. MUSCULOSKELETAL: Normal joints, no swelling. SKIN: Intact; no open lesions. LYMPHATIC: No lymph nodes palpable. LABS: Sodium 144, potassium 3.7, chloride 100, bicarb 31, BUN 21, creatinine 0.81, glucose 25. ASSESSMENT: 1. SEVERE HYPOGLYCEMIA 2. DIABETES, NONCOMPLIANCE 3. CAD STATUS POST STENT 4. HYPERTENSION 5. DYSLIPIDEMIA 6. ANXIETY DISORDER/DEPRESSION PLAN: 1. Admit the patient to the regular floor. 2. CBC, CMP today and daily. 3. Accu-cheks right now. 4. Hold insulin and oral diabetic medications until lab results are back. 5. Lovenox for DVT prophylaxis. 6. Cardiac enzymes and troponins. 7. Telemetry protocol. TIME SPENT: MORE THAN 70 minutes MTDD
--- NOTE | 2016-11-01 11:44 | DS ---
DATE OF SERVICE: 09/19/16 FINAL DIAGNOSIS: 1. SEVERE HYPOGLYCEMIA, ASYMPTOMATIC 2. DIABETES, LABILE, UNCONTROLLED 3. HYPERTENSION 4. DYSLIPIDEMIA 5. CORONARY ARTERY DISEASE, STATUS POST STENT 6. DEPRESSION 7. ANXIETY 8. OSTEOARTHRITIS 9. DJD OF THE SPINE PLAN: 1. Discharge the patient home. 2. Change in medications include: We have increased Lantus dosage 60 units. Lispro is decreased to 15 units with each meal. 3. Keep checking the blood sugar three times a day. MEDICATIONS AT DISCHARGE: The rest of the home medications were not changed. However, they are like this: Amlodipine 10 mg p.o. daily Coreg 20 mg p.o. twice a day Celexa 20 mg p.o. daily Plavix 75 mg p.o. daily Imdur 30 mg p.o. daily Protonix 40 mg p.o. daily Losartan Hydrochlorothiazide 100/25 mg p.o. daily DIET INSTRUCTIONS: Cardiac and diabetic diet. ACTIVITY: Exercise as much as tolerated. DISEASE SPECIFIC EDUCATION: About the hypoglycemia, hypoglycemic coma were discussed with the patient in detail. The patient verbalized understanding. HOSPITAL COURSE: Sonal Alarcon, who is a 66 year old female with multiple medical problems. She has heart problem with history of stent. She was seen initially in the office. Blood work showed a blood sugar of 25. At that time, the patient was admitted directly. Repeat blood sugars and accuchecks in the hospital was in the 200's. At that time, the patient was not held on any of her home medications. All were to be continued. Sugars went up to 300 and 350. At that time, Lantus was increased up to 60 units. Lispro 15 units at each meal. With that regimen, the patient's sugars were getting better. No nausea, vomiting, no chest pain, PND or orthopnea. She had some epigastric pain , but no EKG changes and cardiac enzymes are negative. The patient was suggested about a GI consultation as an outpatient. At one point in the questioning, the patient does say that she does skip meals sometimes and sugar goes low. On the day that the patient came to the office, she did not have any breakfast and had her Insulin. The patient was strictly explained about the medication, side effects and hypoglycemia and the hypoglycemia coma. She verbalized understanding and she promised not to repeat the same mistake again. Time spent on the patient is more 55 minutes today. MTDD
== END 2016-09-19 09:38 | disposition home or self-care (01) | DRG 639 ==
LOC: MEDSURG A 12:02
PROVIDERS: ADMIT Emergency Medicine; ATTEND Emergency Medicine
DX: E11.649 Type 2 diabetes mellitus with hypoglycemia without coma (principal); I10 Essential (primary) hypertension; R10.13 Epigastric pain; E78.5 Hyperlipidemia, unspecified; I25.10 Atherosclerotic heart disease of native coronary artery without angina pectoris; F41.8 Other specified anxiety disorders; M19.90 Unspecified osteoarthritis, unspecified site; M47.9 Spondylosis, unspecified; Z91.11 Patient's noncompliance with dietary regimen; R07.9 Chest pain, unspecified; Z79.4 Long term (current) use of insulin; Z79.02 Long term (current) use of antithrombotics/antiplatelets; Z79.899 Other long term (current) drug therapy; Z95.5 Presence of coronary angioplasty implant and graft
CPT/HCPCS: 36415; 80053; 81001; 82962; 85025; 87086; 87186; 93005; 93010; 97802; 99223; 99233; 99239

== ENCOUNTER 2016-10-09 10:12 | Outpatient (CLI) ==
--- NOTE | 2016-10-09 10:55 | CT ---
EXAM: CT chest without contrast. HISTORY: Left chest pain under the breast. COMPARISON: 07/31/2016. TECHNIQUE: Multiple axial images of the chest were obtained without intravenous contrast. Images w ere reformatted in the sagittal and coronal planes. FINDINGS: Thyroid nodules are incompletely imaged. Heart size is normal. Calcifications in the mi tral valve and along the anterior pericardium. Evaluation for lymphadenopathy is limited by lack of intravenous contrast although there is no evidence of adenopathy. No localized breast abnormality identified although evaluation is limited on CT. Correlation with mammography recommended. No consolidation, pleural effusion or pneumothorax identified. Small hiatal hernia noted. Limited images of the upper abdomen redemonstrate a small left adrenal a denoma and bilateral renal cysts. Degenerative changes present throughout the spine. No acute osse ous abnormality is identified. Since the prior study, there has been no significant interval change. IMPRESSION: No acute abnormality of the chest.
== END 2016-10-09 10:13 | disposition home or self-care (01) ==
LOC: RAD 10:12
PROVIDERS: ATTEND Emergency Medicine
DX: R07.81 Pleurodynia (principal)

== ENCOUNTER 2016-11-08 07:39 | Outpatient (CLI) ==
--- NOTE | 2016-11-08 08:40 | US ---
Exam: Abdalla-scale and color Doppler ultrasonographic evaluation of the kidneys and urinary bladder. Comparison: 04/17/2016. Reason for exam: Bilateral renal cyst. FINDINGS: The right kidney measures approximately 9.89 x 4.57 x 3.45 cm with normal appearing echote xture, no hydronephrosis, and no nephrolithiasis. There is a 3.02 x 2.75 x 2.50 centimeter cyst in the superior right renal pole. The left kidney measures approximately 9.87 x 5.62 x 4.42 cm of normal appearing echotexture, no hydr onephrosis, and no nephrolithiasis. There is a complex appearing 4.7 x 6.8 x 7.92 cm cyst in the inferior left renal pole with minimal in terval vascularity. The bladder is incompletely evaluated secondary to non distension. The right ureteral jet was seen. Impression: 1. Complex appearing left inferior renal pole cyst measuring up to 7.92 cm with internal septations. Recommend short interval follow-up to document stability. 2. Imaging findings appear similar to the previous exam performed on 04/17/2016.
== END 2016-11-08 07:40 | disposition home or self-care (01) ==
LOC: RAD 07:39
PROVIDERS: ATTEND Urology
DX: N28.1 Cyst of kidney, acquired (principal)
CPT/HCPCS: 76770